=== PATIENT | male | born 1955 | race Caucasian/White ===

== ENCOUNTER → 2020-12-23 | Outpatient (CLI) | payer MEDICARE, OTHER ==
[~2020-12-23] MED LIST: ALL DAY ALLERGY10 M2 PO; AUGMENTIN 875-1 EACH PO; CYANOCOBAL1000 MCG/1 INJ; CYCLOBENZAPRINE10 MG PO; DEPO-TESTO200 MG/1 M IM; ECOTRIN81 MG PO; FLONASE 0.05% N16 GM; LOPRESSOR 25 MG25 MG PO; NAPROSYN500 MG PO; NEURONTIN 300300 MG PO; NORCO 10-325 T1 EACH PO; OMEPRAZOLE40 MG PO; SYMBICORT 16010.2 GM INH; SYNTHROID175 MCG PO; VENTOLIN HFA 66.7 GM INH; VIBRAMYCIN100 MG PO; VISTARIL 50 MG50 MG PO; ZESTRIL40 MG PO
== END ==
LOC: KOH-I 10:43
DX: M79.672 Pain in left foot (principal); M79.671 Pain in right foot
CPT/HCPCS: 73630

== ENCOUNTER → 2021-02-02 | Outpatient (CLI) | payer MEDICARE, OTHER ==
[2021-02-02 14:37] LABS: BUN/CREATININE RATIO 15 (0-10)
== END ==
LOC: LAB 13:16
PROVIDERS: Internal Medicine Nephrology
DX: N40.0 Benign prostatic hyperplasia without lower urinary tract symptoms (principal); I12.9 Hypertensive chronic kidney disease with stage 1 through stage 4 chronic kidney disease, or unspecified chronic kidney disease; M19.90 Unspecified osteoarthritis, unspecified site; C73 Malignant neoplasm of thyroid gland; K21.9 Gastro-esophageal reflux disease without esophagitis; J44.9 Chronic obstructive pulmonary disease, unspecified
CPT/HCPCS: 36415; 80053; 82570; 84156

== ENCOUNTER 2021-07-04 09:02 | Emergency (ER) | payer MEDICARE, OTHER | END 2021-07-04 12:29 | disposition home or self-care (01) | LOC: ER1 09:02 | DX: R52 Pain, unspecified (principal); Z90.89 Acquired absence of other organs; F17.200 Nicotine dependence, unspecified, uncomplicated; J44.9 Chronic obstructive pulmonary disease, unspecified; I10 Essential (primary) hypertension; Z20.822 Contact with and (suspected) exposure to COVID-19 | CPT/HCPCS: 99283; U0002 ==

== ENCOUNTER → 2021-10-14 | Outpatient (CLI) | payer MEDICARE, OTHER ==
[2021-10-14 13:26] LABS: BUN/CREATININE RATIO 9 (0-10)
== END ==
LOC: LAB 11:59
PROVIDERS: Internal Medicine Nephrology
DX: N17.9 Acute kidney failure, unspecified (principal); I12.9 Hypertensive chronic kidney disease with stage 1 through stage 4 chronic kidney disease, or unspecified chronic kidney disease; N18.9 Chronic kidney disease, unspecified; N40.0 Benign prostatic hyperplasia without lower urinary tract symptoms; C73 Malignant neoplasm of thyroid gland; M19.90 Unspecified osteoarthritis, unspecified site
CPT/HCPCS: 36415; 80053; 81001; 82570; 84156

== ENCOUNTER → 2021-12-14 | Outpatient (CLI) | payer MEDICARE, OTHER | LOC: EXRD 11:00 | DX: M40.209 Unspecified kyphosis, site unspecified (principal) | CPT/HCPCS: 77080 ==

== ENCOUNTER → 2022-04-26 | Outpatient (CLI) | payer MEDICARE, OTHER | LOC: NM 12:27 | DX: R06.00 Dyspnea, unspecified (principal) | CPT/HCPCS: 78452; 93017; A9502 ==

== ENCOUNTER → 2022-05-01 | Outpatient (CLI) | payer MEDICARE, OTHER ==
[2022-05-01 15:07] LABS: BUN/CREATININE RATIO 20 (0-10)
== END ==
LOC: LAB 14:00
PROVIDERS: Internal Medicine Nephrology
DX: N17.9 Acute kidney failure, unspecified (principal)
CPT/HCPCS: 36415; 80053; 82570; 84156

== ENCOUNTER → 2022-05-04 | Outpatient (CLI) | payer MEDICARE, OTHER | LOC: US 13:58 | DX: H53.2 Diplopia (principal); H53.129 Transient visual loss, unspecified eye | CPT/HCPCS: 93880 ==

== ENCOUNTER → 2022-05-09 | Outpatient (CLI) | payer MEDICARE, OTHER | LOC: MRI 12:48 | DX: H53.2 Diplopia (principal); H53.123 Transient visual loss, bilateral; D17.0 Benign lipomatous neoplasm of skin and subcutaneous tissue of head, face and neck | CPT/HCPCS: 70553; A9577 ==